=== PATIENT | male | born 1950 | race Caucasian/White ===

== ENCOUNTER 2018-03-21 10:39 | Observation (INO) | payer OTHER ==
[~2018-03-21] VITALS: Ht 175.3 cm; Wt 83.7 kg
[2018-03-21 11:34] LABS: BASOPHILS % (AUTO) 0.3 % (0.0-5.0); EOSINOPHILS % (AUTO) 1.7 % (0.0-8.0); HEMATOCRIT 38.1 % (42-54); LYMPHOCYTES % (AUTO) 30.4 % (21.0-51.0); MEAN CORPUSCULAR HEMOGLOBIN 30.6 pg (27.0-33.0); MEAN CORPUSCULAR HGB CONC 33.1 g/dL (32.0-36.0); MEAN CORPUSCULAR VOLUME 92.4 fL (79-99); MONOCYTES % (AUTO) 9.8 % (3.0-13.0); NEUTROPHILS % (AUTO) 57.8 % (40.0-77.0); PLATELET COUNT (AUTO) 209 K/uL (130-400); RED BLOOD CELL COUNT(AUTO) 4.12 MIL/uL (4.50-6.20); RED CELL DISTRIBUTION WIDTH 14.3 % (11.0-15.5); WHITE BLOOD COUNT (AUTO) 4.5 K/uL (4.8-10.8)
[2018-03-21 11:43] LABS: CREATININE 1.2 mg/dL (0.5-1.5); POTASSIUM 4.8 mmol/L (3.5-5.1)
[2018-03-21 11:48] LABS: ALBUMIN 3.4 g/dL (3.5-5.0); BILIRUBIN,TOTAL 0.2 mg/dL (0.2-1.0)
[2018-03-21] MEDS ORDERED: MORPHINE SULFATE 2 MG/ML 1ML SYG IV PRN (15:30)
[2018-03-21] MEDS ORDERED: HYDRALAZINE HCL 20 MG/ML VIAL IV PRN (15:30)
[2018-03-21] MEDS ORDERED: ONDANSETRON HCL 4 MG/2 ML VIAL IV PRN (15:30)
[2018-03-21] MEDS ORDERED: LACTULOSE 20 GM/30 ML UDCUP PO PRN (15:30)
[2018-03-21] MEDS ORDERED: ACETAMINOPHEN 325 MG TAB PO PRN ×2 (15:30)
[2018-03-21] MEDS ORDERED: IBUPROFEN 800 MG TAB ONE (16:05)
[2018-03-21 16:34] LABS: CREATINE KINASE, TOTAL 54 U/L (21-232); MYOGLOBIN 31 ng/mL (10-92); THYROID STIMULATING HORMONE 0.88 uIU/mL (0.36-3.74); TROPONIN I < 0.04 ng/mL (0.00-0.06)
[2018-03-21 16:43] LABS: HEMOGLOBIN A1C 6.3 % (4.0-6.0)
[2018-03-21] MEDS ORDERED: NITROGLYCERIN 1GM/1 INCH PACKET TD ONE (17:24)
[2018-03-21] MEDS ORDERED: FAMOTIDINE/PF 20 MG/2 ML VIAL IV ONE (20:49)
[2018-03-21] MEDS ORDERED: METOPROLOL TARTRATE 25 MG TAB ONE (20:49)
[2018-03-21] MEDS: METOPROLOL TARTRATE 25 MG TAB PO SCH (21:00)
[2018-03-21 22:45] VITALS: BP 152/60
--- NOTE | 2018-03-21 22:45 | NUR ---
Admission note: Received pt. per stretcher. AOx3. Can amb indep, but advised on bedrest with brp. Fully awake and responsive. Has an IV site of 20 g to RFA attached to SL - intact and patency checked. Pt. oriented to room and used of call light. Policies and procedures explained. Verbalized understanding.Assessment done. VS checked and recorded. Attached to telemetry with NSR at 60's. Orders carried out. Monitored and watched closely for any unusualities. Cared for and needs attended.Distress / discomfort not noted. Pt. called his to bring his home meds for more clarification. Endorsed to next shift accordingly.
[2018-03-21] MEDS ORDERED: LEVO50TA11 PO (23:28)
[2018-03-21] MEDS ORDERED: VARE0.5T PO (23:28)
[2018-03-21] MEDS ORDERED: TAMS0.4C32 PO (23:28)
[2018-03-21] MEDS ORDERED: MIRT30TA6 PO (23:28)
[2018-03-21] MEDS ORDERED: VENL75TA63 PO (23:28)
[2018-03-21] MEDS ORDERED: LISI40TA4 PO (23:28)
[2018-03-21] MEDS ORDERED: FINA5TAB41 PO (23:28)
[2018-03-22] MEDS: IBUPROFEN 800 MG TAB PO SCH ×3 (00:10→16:44)
[2018-03-22] MEDS: NITROGLYCERIN 1GM/1 INCH PACKET TD SCH ×3 (00:11→16:44)
[2018-03-22 00:29] LABS: CREATINE KINASE, TOTAL 52 U/L (21-232); TROPONIN I < 0.04 ng/mL (0.00-0.06)
[2018-03-22 00:57] LABS: MYOGLOBIN 57 ng/mL (10-92)
[2018-03-22 03:56] VITALS: BP 111/57
[2018-03-22] MEDS ORDERED: LEVOTHYROXINE 50 MCG TABLET PO SCH (07:30)
[2018-03-22 07:34] LABS: CREATINE KINASE, TOTAL 49 U/L (21-232); MYOGLOBIN 46 ng/mL (10-92); TROPONIN I < 0.04 ng/mL (0.00-0.06)
[2018-03-22 08:10] VITALS: BP 148/70
[2018-03-22] MEDS ORDERED: FINASTERIDE 5 MG TABLET PO SCH (09:00)
[2018-03-22] MEDS ORDERED: ENOXAPARIN SODIUM 40 MG/0.4 ML SYRINGE SQ SCH (09:00)
[2018-03-22] MEDS ORDERED: MIRTAZAPINE 15 MG TABLET PO SCH ×2 (09:00→21:00)
[2018-03-22] MEDS ORDERED: ASPIRIN 325 MG TABLET PO SCH (09:00)
[2018-03-22] MEDS ORDERED: FAMOTIDINE/PF 20 MG/2 ML VIAL IV SCH (09:00)
[2018-03-22] MEDS: METOPROLOL TARTRATE 25 MG TAB PO SCH (09:00)
[2018-03-22] MEDS ORDERED: LISINOPRIL 40 MG TABLET PO SCH (09:00)
[2018-03-22] MEDS ORDERED: VARENICLINE TARTRATE 0.5 MG PO SCH (09:00)
[2018-03-22 11:21] VITALS: BP 141/75
[2018-03-22] MEDS ORDERED: VENL100T4 PO (12:44)
[2018-03-22] MEDS ORDERED: TRAZ-187 PO (12:44)
[2018-03-22] MEDS ORDERED: PRAZ2CAP2 PO (12:44)
[2018-03-22] MEDS ORDERED: VARE1TAB22 PO (12:44)
[2018-03-22 16:54] VITALS: BP 149/60
--- NOTE | 2018-03-22 17:33 | NUR ---
D/C ORDER CALLED DR. SUMAYA CRANE AND READ BACK THE MRI RESULTS. NEW ORDERS RECEIVED TO D/C PATIENT HOME. PATIENT ALREADY HAS A F/U APPOINTMENT WITH HIS PCP ON TUESDAY. NO PRESCRIPTIONS FOR NOW, CONTINUE TAKING OVER THE COUNTER BABY ASPIRIN AND ALL REGULAR HOME MEDICATIONS. PATIENT VERBALIZED UNDERSTANDING OF THESE INSTRUCTIONS.
[2018-03-22] MEDS ORDERED: TAMSULOSIN HCL 0.4 MG CAP.ER.24H PO SCH (21:00)
[2018-03-22] MEDS ORDERED: VENLAFAXINE HCL 75 MG TAB PO SCH (21:00)
== END 2018-03-22 18:17 | disposition home or self-care (01) ==
LOC: EDH 10:39 → EDHIP 15:21 → 4CH 21:25
PROVIDERS: ADMIT Internal Medicine; ATTEND Internal Medicine
DX: M94.0 Chondrocostal junction syndrome [Tietze] (principal); E78.5 Hyperlipidemia, unspecified; I10 Essential (primary) hypertension; Z87.891 Personal history of nicotine dependence; Z87.11 Personal history of peptic ulcer disease
CPT/HCPCS: 36415 ×2; 70551; 71045; 80053; 82550 ×3; 83036; 83874 ×3; 84443; 84484 ×4; 85025; 93005 ×4; 96372; 96374; 99284; G0378 ×27; J1650; J3490 ×2